=== PATIENT | female | born 1970 | race Caucasian/White ===

== ENCOUNTER 2022-12-27 20:28 | Outpatient (OUT) | payer OTHER, SELFPAY ==
[2023-01-01 10:07] LABS: Age Gdln ACOG Testing Note (.); HPV Aptima Negative (Negative); IGP, Aptima HPV, rfx 16/18,45 Note (.)
== END 2022-12-27 20:29 | disposition home or self-care (01) ==
PROVIDERS: Visit Provider Physician Assistant
DX: Z12.4 Encounter for screening for malignant neoplasm of cervix (principal)
CPT/HCPCS: 87624; G0145

== ENCOUNTER 2023-05-07 13:57 | Outpatient (OUT) | payer OTHER, SELFPAY ==
--- NOTE | 2023-05-07 14:00 | MM_ITS ---
Patient Name: SCOTT TOLBERT MR#: [id number] : 1970 Exam Date: 05/07/2023 Ordering Doctor: CHEKO Hood . RADIOLOGY REPORT PROCEDURE: MM TOMOSYNTHESIS SCREENING BI COMPARISON: MG MAMM SCREEN 3D MIL[place] CAD, 04/27/2022. MG MAMM SCREEN 3D [place] CAD, 03/24/2021. MG MAMM SCREEN MIL[place]RO W CAD, 02/17/2020. MG MAMM MILAGRO SCRN W CAD DIG, 11/04/2013. INDICATIONS: Screening Calculator Name NCI Breast Cancer Risk Assessment Tool 5 Year Breast Cancer Risk 1.30% Lifetime Breast Cancer Risk 9.30% Personal Breast Cancer No Personal Ovarian Cancer No Treatments None Family Cancers Mother with lung cancer at age 70; Father with esophagel cancer at age 70. LOCATION: The [facility] BREAST COMPOSITION: Extremely dense, which lowers the sensitivity of mammography. FINDINGS: DIAGNOSTIC CATEGORY 2--BENIGN FINDING: RIGHT BREAST: No significant suspicious finding. Scattered benign-appearing calcifications are present. No significant change has occurred. LEFT BREAST: No significant suspicious finding. No significant change has occurred. RECOMMENDATIONS: ROUTINE MAMMOGRAM AND CLINICAL EVALUATION IN 12 MONTHS. PLEASE NOTE: A NORMAL MAMMOGRAM DOES NOT EXCLUDE THE POSSIBILITY OF BREAST CANCER. A CLINICALLY SUSPICIOUS PALPABLE LUMP SHOULD BE BIOPSIED. Dictated by: Isaias Hein M.D. on 05/09/2023 at 12:01 Approved by: Isaias Hein M.D. on 05/09/2023 at 12:49
--- NOTE | 2023-05-07 14:04 | XR_ITS ---
The [address] [address] Patient Name: SCOTT TOLBERT MRN: [id number] date: 1970 Sex: F Assigned Patient Location: [facility] Current Patient Location: [facility] Accession/Order Number: [id number] Exam Date: 05/07/2023 14:22 Report Date: 05/07/2023 14:47 At the request of: BRITANY CHAVEZ Procedure: XR DEXA axial skeleton EXAMINATION: XR DEXA axial skeleton HISTORY: Post Menopause M61.0 COMPARISON: No relevant comparison available. TECHNIQUE: Dual-energy X-ray absorptiometry (DXA) was performed. FINDINGS: SPINE ANALYSIS: Average bone mineral density is 1.245 g/cm2. T-score (standard deviation relative to young adult mean): 0.4 . HIP ANALYSIS: Lowest bone mineral density is within the right femoral neck, 0.868 g/cm2. T-score (standard deviation relative to young adult mean): -1.2 . XR/XR DEXA axial skeleton IMPRESSION: World [employer] Classification: Osteopenia - Moderate Fracture Risk Electronically authenticated by: MAXINE FELIX Date: 05/07/2023 14:47
== END 2023-05-07 13:58 | disposition home or self-care (01) ==
LOC: MAMMO 13:57
PROVIDERS: Visit Provider Physician Assistant
DX: M81.0 Age-related osteoporosis without current pathological fracture (principal); Z12.31 Encounter for screening mammogram for malignant neoplasm of breast; Z80.1 Family history of malignant neoplasm of trachea, bronchus and lung; Z80.8 Family history of malignant neoplasm of other organs or systems; M85.80 Other specified disorders of bone density and structure, unspecified site
CPT/HCPCS: 77063; 77067; 77080

== ENCOUNTER 2023-12-03 08:30 | Outpatient (OUT) | payer OTHER, SELFPAY ==
--- NOTE | 2023-12-03 08:33 | US_ITS ---
The [address] [address] Patient Name: SCOTT TOLBERT MRN: [id number] date: 1970 Sex: F Assigned Patient Location: [facility] Current Patient Location: Accession/Order Number: [id number] Exam Date: 12/03/2023 08:35 Report Date: 12/04/2023 08:28 At the request of: MORTEZA DENTON Procedure: US pelvis w/ transvaginal EXAMINATION: US pelvis w/ transvaginal HISTORY: Postmenopausal bleeding N95.0 COMPARISON: No relevant comparison available. TECHNIQUE: Transabdominal and/or transvaginal sonographic examination was performed as indicated by examination type. FINDINGS: UTERUS: Normal size and appearance. Multiple nabothian cysts within zurita of cervix. Uterus size: 9.3 x 5.9 x 4.2 cm ENDOMETRIUM: Normal homogeneous appearance. Endometrial thickness: 5 mm RIGHT OVARY: Normal size and appearance. Duplex Doppler demonstrates normal waveform and flow; resistive index 0.6. Ovary size: 2.0 x 1.4 x 1.1 cm LEFT OVARY: Normal size and appearance. Duplex Doppler demonstrates normal waveform and flow; resistive index 0.7. Ovary size: 1.6 x 1.4 x 1.1 cm CUL-DE-SAC: Unremarkable. No significant free fluid. BLADDER: Unremarkable. OTHER: None. US/US pelvis w/ transvaginal IMPRESSION: 1. No suspicious findings to account for patient's symptoms. Electronically authenticated by: MAXINE FELIX Date: 12/04/2023 08:28
--- OUTSIDE RECORDS SUMMARY | 2023-12-03 08:43 | XMS_ITS | CCD ---
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 Role Phone DR MORTEZA DENTON Admitting Unavailable BERTIN, DR PRO Attending Unavailable REQUEST, NONE LISTED Primary Care Unavaila selene GRIMALDO, DR MARY ANN Hancock Consulting Unavailable BERTIN, DR PRO Consulting Unavailable Naty Sutherland Referring Unavailable Naty Sutherland Attending Unavailable Naty Sutherland Admitting Unavailable Allergies Allergy Classification Reported Allergen(s) Allergy Type Date of Onset Reaction(s) Facility (1 source) Morphine; Translations: [morphine] Drug Allergy [facility] Repository Problems Problem Classification Problem Date Documented Da te Episodic/Chronic Other screening for suspected conditions (not mental disorders or infectious disease) (4 sources) Encounter for screening mammogram for malignant neoplasm of breast; Translations: [ENC SCR MAMMO MALIG NEOPLASM BREAST] Onset: 04-27-2022 Episodic Residual codes; unclassified (1 source) Family history of malignant neoplasm of trachea, bronchus and lung; Translations: [FAM HX MALIG NEOPLSM TRACH BRON LNG] Onset: 05-04-2022 Episodic Residual codes; unclassified (1 source) Family history of malignant neoplasm of digestive organs; Translations: [FAM HX MALIG NEOPLASM DIGESTIV ORGN] Onset: 05-04-2022 Episodic Results Test Name Value Interpretation Reference Range Facil ity US Thyroidon 01-15-2023 US Thyroid Exam Date/Time: 01/12/2023 13:25 EDT Reason for Exam: E03.9 E04.1 Report IMPRESSION: Unchanged small left thyroid nodules. Right thyroidectomy. EXAMINATION: US Thyroid HISTORY: History of right thyroidectomy, yearly follow-up. TECHNIQUE: Sonography and Doppler imaging of the thyroid was performed. Images were obtained and stored in a permanent archive.\X09\ COMPARISON: 12/21/2021. RESULT: RIGHT LOBE: Surgically absent. Surgical bed unremarkable. LEFT LOBE: 2.9 cm x 1.3 cm x 1.9 cm with a volume of 3.6 cm3; homogeneous echogenicity, expected vascular flow ISTHMUS: 0.4 cm. Nodules: 0.5 x 0.4 x 0.6 cm TR 4 nodule in the left inferior thyroid and 0.4 x 0.4 x 0.4 cm TR4 nodule in the left mid thyroid, grossly unchanged. Lymph nodes: No enlarged cervical lymph nodes. Note, ACR TI-RADS is a reporting system for thyroid nodules on ultrasound proposed by the [employer] (ACR) Ordering Provider: Naty Sutherland FINAL REPORT Dictated: 01/15/2023 4:11 pm Juan R Oneil MD Signed (Electronic Signature): 01/15/2023 4:11 pm Signed by: Juan R Oneil MD Transcribed by: SILVINA Technologist: DENNY Normal [facility] Consent for Treatmenton 12-17 Consent for Treatment [id number]#1 .00CD:127 Normal [facility] Physician Orderon 01-12-2023 Physician Order [id number]# 1.00CD:127 Normal [facility] TSHon 01-12-2023 TSH Qn 0.99 m[IU]/L Normal 0.34-5.60 [facility] Comment on above: Performed By: #### 2 [id number] #### [facility] [address] [place] [address] Physician Orderon 01-10-2023 Physician Order [id number]#1 .00CD:127 Normal [facility] MG MAMM SCREEN 3D [place] CADon 04-27-2022 MG MAMM SCREEN 3D [place] CAD Patient: SCOTT TOLBERT Exam Date: 04/27/2022 : 1970 Gender:F Ordering : DR MORTEZA DENTON . Admission #: [id number] Family : Order #: [id number] CLICK HERE TO VIEW EXAM RADIOLOGY REPORT PROCEDURE: MAMMOGRAM SCREENING 3D BILATERAL CAD COMPARISON: MG MAMM SCREEN 3D [place] CAD, 03/24/2021. INDICATIONS: Screening mammography Calculator Name NCI Breast Cancer Risk Assessment Tool 5 Year Breast Cancer Risk 1.20% Lifetime Breast Cancer Risk 9.40% Personal Breast Cancer No Personal Ovarian Cancer No Treatments None Family Cancers Mother with lung cancer at age 70; Father with esophagel cancer at age 70. LOCATION: [facility] BREAST COMPOSITION: Extremely dense, which lowers the sensitivity of mammography. FINDINGS: DIAGNOSTIC CATEGORY 2--BENIGN FINDING. NO CHANGE FROM COMPARISON. Scattered benign-appearing calcifications are present. Scattered benign-appearing lymph nodes are present. RIGHT BREAST: No significant suspicious finding. LEFT BREAST: No significant suspicious finding. RECOMMENDATIONS: ROUTINE MAMMOGRAM AND CLINICAL EVALUATION IN 12 MONTHS. PLEASE NOTE: A NORMAL MAMMOGRAM DOES NOT EXCLUDE THE POSSIBILITY OF BREAST CANCER. A CLINICALLY SUSPICIOUS PALPABLE LUMP SHOULD BE BIOPSIED. Dictated by: Mary Ann Grimaldo MD on 04/28/2022 at 08:59 Approved by: Mary Ann Grimaldo MD on 04/28/2022 at 09:02 Normal [facility] Encounters Encounter Date Encounter Type Care Provider Facility Start: 01-12-2023 End: 01-13-2023 ambulatory Naty Cindy Koko Facility:[facility] Start: 04-27-2022 End: 04-28-[address] MORTEZA DENTON Facility: Payers Date Payer Category Payer Unknown [id number] 2.16.84 [id number] 1970 Unknown [id number] [id number] 1961 Unknown [id number] Summary Purpose Family History No Family History Records FoundNo Family History Records Found Advance Directives No Advanced Directives Records FoundNo Advanced Directives Records Found Additional Source Comments INFORMATION SOURCE (unrecogn ized section and content) DATE CREATED AUTHOR 05/05/2022 [facility] DATE CREATED AUTHOR AUTHOR'S ORGANIZ ATION 01/16/2023 [facility] FOR RECORDS PERTAINING TO PATIENTS WHO ARE OR HAVE BEEN ENROLLED IN A CHEMICAL DEPENDENCY/SUBSTANCEABUSE PROGRAM, SOME INFORMATION MAY BE OMITTED. This clinical summary was aggregated from multiple sources. Caution should be exercised in using it in the provision of clinical care. This summary normalizes information from multiple sources, and as a consequence, information in this document may materially change the coding, format and clinical context of patient data. In addition, data may be omitted in some cases. CLINICAL DECISIONS SHOULD BE BASED ON THE PRIMARY CLINICAL RECORDS. [facility] [employer] [facility]. provides no warranty or guarantee of the accuracy or completeness of information in this document.
== END 2023-12-03 08:31 | disposition home or self-care (01) ==
LOC: NOMS 08:30
PROVIDERS: Visit Provider Obstetrics & Gynecology
DX: N95.0 Postmenopausal bleeding (principal)
CPT/HCPCS: 76830; 76856; 81003

== ENCOUNTER 2023-12-03 09:10 | Outpatient (OUT) | payer OTHER, SELFPAY ==
[2023-12-03 10:08] LABS: Bilirubin Urine NEGATIVE (NEGATIVE); Blood Urine NEGATIVE (NEGATIVE); Clarity Urine CLEAR (CLEAR); Color Urine LT. YELLOW (YELLOW); Glucose Urine UA NEGATIVE (NEGATIVE); Ketones Urine NEGATIVE (NEGATIVE); Leukocyte Esterase Urine NEGATIVE (NEGATIVE); Nitrite Urine NEGATIVE (NEGATIVE); Protein Urine NEGATIVE (NEG/TRACE); Specific Gravity Urine <=1.005 (1.005-1.025); Urobilinogen Urine 0.2 EU/dL (0.2-1.0)
[2023-12-03 10:11] LABS: Urine Microscopic Indicated NO
== END 2023-12-03 09:11 | disposition home or self-care (01) ==
LOC: LAB 09:12
PROVIDERS: Visit Provider Obstetrics & Gynecology
DX: N95.0 Postmenopausal bleeding (principal)
CPT/HCPCS: 81003

== ENCOUNTER 2024-01-18 09:43 | Outpatient (OUT) | payer OTHER, SELFPAY ==
--- OUTSIDE RECORDS SUMMARY | 2024-01-18 09:46 | XMS_ITS | CCD ---
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 Role Phone DR MORTEZA DENTON Admitting Unavailable BERTIN, DR PRO Attending Unavailable REQUEST, DR GREY LISTED Primary Care Unavaila selene GRIMALDO, DR MARY ANN Hancock Consulting Unavailable BERTIN, DR PRO Consulting Unavailable Timmis Naty H Referring Unavailable TimmisNaty H Attending Unavailable TimmisNaty H Admitting Unavailable MORTEZA DENTON Attending Unavailable MORTEZA DENTON Attending Unavailable Allergies Allergy Classification Reported Allergen(s) Allergy Type Date of Onset Reaction(s) Facility (1 source) Morphine; Translations: [morphine] Drug Allergy [facility] Repository Problems Problem Classification Problem Date Documented [...] thyroid nodules on ultrasound proposed by the [employer] (ACR) Ordering Provider: Naty Sutherland FINAL REPORT Dictated: 01/15/2023 4:11 pm Juan R Oneil MD Signed (Electronic Signature): 01/15/2023 4:11 pm Signed by: Juan R Oneil MD Transcribed by: SILVINA Technologist: DENNY Munoz [facility] Consent for Treatmenton 12-17 Consent for Treatment [id number] .00CD:127 Normal [facility] Physician Orderon 01-12-2023 Physician Order [id number]# 1.00CD:127 Normal [facility] TSHon 01-12-2023 TSH Qn 0.99 m[IU]/L Normal 0.34-5.60 [facility] Comment on above: Performed By: #### 2 [id number] #### [facility] [address] [place] [address] Physician Orderon 01-10-2023 Physician Order [id number]#1 .00CD:127 Normal [facility] MG MAMM SCREEN 3D MIL[place]RO CADon 04-27-2022 MG MAMM SCREEN 3D [place] CAD Patient: SCOTT TOLBERT Exam Date: 04/27/2022 : 1970 Gender:F Ordering : DR MORTEZA DENTON . Admission #: [id number] Family : Order #: [id number] CLICK HERE TO VIEW EXAM RADIOLOGY REPORT [...] esophagel cancer at age 68. LOCATION: The [facility] BREAST COMPOSITION: Extremely dense, which lowers [...] Ann Grimaldo MD on 04/28/2022 at 09:02 [facility] Encounters Encounter Date Encounter Type Care Provider Facility Start: 01-03-2024 End: 01-03-2024 ambulatory MORTEZA DENTON Not Available Start: 11-26-2023 End: 11-26-2023 ambulatory MORTEZA DENTON Not Available Start: 01-12-2023 End: 01-13-2023 ambulatory Naty Sutherland Facility[facility] Start: 04-27-2022 End: 04-28-[address] MORTEZA DENTON Facility: Payers Date Payer Category Payer Unknown [id number] [id number] [id number] 1970 Unknown [id number] [id number] 1970 Unknown [id number] 2.16.84 [id number] 1970 Unknown [id number] 2.16.84 [id number] 1959 Unknown [id number] Summary Purpose Family History No Family History Records FoundNo Family History Records FoundNo Family History Records Found Advance Directives No Advanced Directives Records FoundNo Advanced Directives Records FoundNo Advanced Directives Records Found Additional Source Comments INFORMATION SOURCE (unrecogn ized section and content) DATE CREATED AUTHOR 05/05/2022 [facility] DATE CREATED AUTHOR AUTHOR'S ORGANIZ ATION 01/16/2023 [facility] DATE CREATED AUTHOR AUTHOR'S ORGANIZ ATION 01/06/[address] [facility] [employer] EP[employer] FOR RECORDS PERTAINING TO PATIENTS WHO ARE [...] BE BASED ON THE PRIMARY CLINICAL RECORDS. [facility] [employer] provides no warranty or guarantee of the accuracy or completeness of information in this document.
--- NOTE | 2024-01-18 09:49 | ECG_ITS ---
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
== END 2024-01-18 09:44 | disposition home or self-care (01) ==
LOC: PST 09:43
PROVIDERS: Visit Provider Obstetrics & Gynecology
DX: Z01.810 Encounter for preprocedural cardiovascular examination (principal); N95.0 Postmenopausal bleeding
CPT/HCPCS: 93005

== ENCOUNTER 2024-02-01 06:45 | Day surgery (SDC) | payer OTHER, SELFPAY ==
[2024-01-18 10:18] VITALS: BP 125/74; PULSE 58; TEMP 36.4; O2SAT 100; BMI 26.1
--- OUTSIDE RECORDS SUMMARY | 2024-02-01 06:47 | XMS_ITS | CCD ---
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 .00CD:127 Normal [facility] Physician Orderon 01-12-2023 Physician Order [id number]# 1.00CD:127 Normal [facility] TSHon 01-12-2023 TSH Qn 0.99 m[IU]/L Normal 0.34-5.60 [facility] Comment on above: Performed By: #### 2 [id number] #### [facility] [address] [place] [address] Physician Orderon 01-10-2023 Physician Order [id number] .00CD:127 Normal [facility] MG MAMM SCREEN 3D MIL[place]RO CADon 04-27-2022 MG MAMM SCREEN 3D [place] CAD Patient: SCOTT TOLBERT Exam Date: 04/27/2022 : 1970 Gender:F Ordering : DR MORTEZA DENTON . Admission #: [id number] Family : Order #: [id number] CLICK HERE TO VIEW EXAM RADIOLOGY REPORT [...] esophagel cancer at age 68. LOCATION: The [facility] BREAST COMPOSITION: Extremely dense, which lowers [...] Ann Grimaldo MD on 04/28/2022 at 09:02 [facility] Encounters Encounter Date Encounter Type Care Provider Facility Start: 01-03-2024 End: 01-03-2024 ambulatory MORTEZA DENTON Not Available Start: 11-26-2023 End: 11-26-2023 ambulatory MORTEZA DENTON Not Available Start: 01-12-2023 End: 01-13-2023 ambulatory Naty Sutherland Facility:[facility] Start: 04-27-2022 End: 04-28-[address] MORTEZA DENTON Facility: Payers Date Payer Category Payer Unknown [id number] 2.16.84 [id number] 1970 Unknown [id number] 2.16.8 [id number] 1970 Unknown [id number] 2.16.84 [id number] 1970 Unknown [id number] 2.16.84 [id number] 1961 Unknown [id number] Summary Purpose Family History No Family History Records FoundNo Family History Records FoundNo Family History Records Found Advance Directives No Advanced Directives Records FoundNo Advanced Directives Records FoundNo Advanced Directives Records Found Additional Source Comments INFORMATION SOURCE (unrecogn ized section and content) DATE CREATED AUTHOR 05/05/2022 [facility] DATE CREATED AUTHOR AUTHOR'S ORGANIZ ATION 01/16/2023 [facility] DATE CREATED AUTHOR AUTHOR'S ORGANIZ ATION 01/06/2024 [facility] [employer] EPIC FOR RECORDS PERTAINING TO PATIENTS [...] BE BASED ON THE PRIMARY CLINICAL RECORDS. [facility] [employer] provides no warranty or guarantee of the accuracy or completeness of information in this document.
[2024-02-01 07:00] VITALS: BP 150/87; PULSE 74; TEMP 36.3; O2SAT 100; BMI 26.0
[2024-02-01 07:06] LABS: Basophils Percent Auto 0.6 % (0.2-2.0); Eosinophils Absolute Auto 0.1 10^3/uL (0.0-0.7); Eosinophils Percent Auto 1.3 % (0.9-7.0); Hematocrit 42.3 % (36.0-48.0); Hemoglobin 13.9 g/dL (12.0-16.0); Immature Granulocytes Abs Auto 0.01 10^3/uL (0.00-0.03); Immature Granulocytes Pct Auto 0.2 % (0.0-0.5); Lymphocytes Absolute Auto 2.2 10^3/uL (1.2-3.8); Lymphocytes Percent Auto 41.7 % (20.5-60.0); Mean Corpuscular HGB Conc 32.9 g/dL (29.9-35.2); Mean Corpuscular Hemoglobin 30.4 pg (26.7-34.0); Mean Corpuscular Volume 92.6 fL (81.0-99.0); Monocytes Absolute Auto 0.5 10^3/uL (0.3-0.8); Monocytes Percent Auto 10.2 % (1.7-12.0); Neutrophils Absolute Auto 2.4 10^3/uL (1.4-6.5); Platelet Count 252 10^3/uL (150-450); Red Blood Count 4.57 10^6/uL (4.20-5.40); Red Cell Distribution Width 12.3 % (11.0-15.0); White Blood Count 5.3 10^3/uL (4.0-11.0)
[2024-02-01 07:27] LABS: Glucometer 93 mg/dL (74-106)
[2024-02-01] MEDS: LACTATED RINGER'S SOLUTION 1,000 ML 50 ML IV (07:29)
[2024-02-01 10:44] VITALS: BP 115/83; PULSE 70; O2SAT 96
--- NOTE | 2024-02-01 10:44 | PM.ONB ---
Brief Operative Note Date of procedure: 02/01/24 Pre-op diagnosis general: pmb, thickend endometrium Post-op diagnosis: same as pre-op Procedure: NAME OF PROCEDURE: [ D&c hysteroscopy with myosure] PROCEDURE: The patient was taken back to the Operating Room where she was prepped and draped in normal sterile fashion after being placed under general anesthesia without difficulty. She was also placed in the dorsal lithotomy position. A weighted speculum was placed in the patient?s vagina. The anterior lip of the cervix was identified and grasped with a single tooth tenaculum. The patient?s uterus was then sounded roughly to [? 8] cm. The patient was then gently dilated using Hegar dilators. The hysteroscope was passed through the patient?s cervix into the uterus. Both ostia were identified. fluffy appearing endometrium. No gross evidence of malignancy, no gross evidence of polyps or fibroids. The myosure apparatus was placed through the scope, The myosure was engaged and endometrial curretting were removed along with endometrial polyp, The hysteroscope was then removed from the uterus. The endometrial curettings were sent out to pathology. The single tooth tenaculum was then removed from the patient's anterior lip of the cervix where excellent hemostasis was noted. All instruments were removed from the patient?s vagina. The patient tolerated the procedure well. Sponge, lap and needle counts were correct times two. The patient was taken to the Recovery Room in stable condition.Room in stable condition. Anesthesia: GETA and MAC Surgeon: Alton Huffman Estimated blood loss (mL): 5 Pathology: other (endometrial currettings) Condition: stable Disposition: PACU Urinary Catheter Management Urinary Catheter Management Urethral: Cath placed during this visit: no
[2024-02-01 11:00] VITALS: BP 116/74; PULSE 62; O2SAT 98
--- NOTE | 2024-02-01 11:07 | PC.NURSE ---
Peripad dry; denies urge to void
[2024-02-01 11:30] VITALS: BP 134/79; PULSE 50; O2SAT 100
--- NOTE | 2024-02-01 12:01 | PC.NURSE ---
Peripad has small amount bloody drainage without clots
--- NOTE | 2024-02-01 12:03 | PC.NURSE ---
Up to bathroom and voids without difficulty with small amount of blood noted in toliet.
== END 2024-02-01 11:55 | disposition home or self-care (01) ==
PROVIDERS: Visit Provider Obstetrics & Gynecology
PROC: (CPT 952; principal; 2024-02-01 08:05)
DX: N95.0 Postmenopausal bleeding (principal); R93.89 Abnormal findings on diagnostic imaging of other specified body structures; K21.9 Gastro-esophageal reflux disease without esophagitis; E03.9 Hypothyroidism, unspecified
CPT/HCPCS: 58558; 36415; 82948; 85025; 88305; J1100; J1885; J2250; J2405; J2704; J3010

== ENCOUNTER 2024-05-08 13:48 | Outpatient (OUT) | payer OTHER, SELFPAY ==
--- NOTE | 2024-05-08 13:50 | MM_ITS ---
Patient Name: SCOTT TOLBERT MR#: [id number] : 1970 Exam Date: 05/08/2024 Ordering Doctor: DR Alton Huffman . RADIOLOGY REPORT PROCEDURE: MM TOMOSYNTHESIS SCREENING BI COMPARISON: MM TOMOSYNTHESIS SCREENING BI, 05/07/2023. MG MAMM SCREEN 3D MILAGRO CAD, 04/27/2022. MG MAMM SCREEN 3D [place] CAD, 03/24/2021. MG MAMM [place]RO SCRN W CAD DIG, 11/04/2013. INDICATIONS: Screening Calculator Name NCI Breast Cancer Risk Assessment Tool 5 Year Breast Cancer Risk 1.30% Lifetime Breast Cancer Risk 9.10% Personal Breast Cancer No Personal Ovarian Cancer No Treatments None Family Cancers Mother with lung cancer at age 70; Father with esophagel cancer at age 70. LOCATION: [facility] BREAST COMPOSITION: The breasts are extremely dense, which lowers the sensitivity of mammography. FINDINGS: DIAGNOSTIC CATEGORY 2--BENIGN FINDING: RIGHT BREAST: No significant suspicious finding. Scattered benign-appearing calcifications are present. No significant change has occurred. LEFT BREAST: No significant suspicious finding. Stable asymmetric fibroglandular tissue within lower-outer quadrant. No significant change has occurred. RECOMMENDATIONS: ROUTINE MAMMOGRAM AND CLINICAL EVALUATION IN 12 MONTHS. PLEASE NOTE: A NORMAL MAMMOGRAM DOES NOT EXCLUDE THE POSSIBILITY OF BREAST CANCER. A CLINICALLY SUSPICIOUS PALPABLE LUMP SHOULD BE BIOPSIED. Dictated by: Isaias Hein M.D. on 05/08/2024 at 15:53 Approved by: Isaias Hein M.D. on 05/08/2024 at 15:57
== END 2024-05-08 13:49 | disposition home or self-care (01) ==
LOC: MAMMO 13:48
PROVIDERS: Visit Provider Obstetrics & Gynecology
DX: Z12.31 Encounter for screening mammogram for malignant neoplasm of breast (principal); Z80.1 Family history of malignant neoplasm of trachea, bronchus and lung
CPT/HCPCS: 77063; 77067

== ENCOUNTER 2024-06-05 18:59 | Outpatient (REF) | payer OTHER, SELFPAY ==
--- OUTSIDE RECORDS SUMMARY | 2024-06-05 19:02 | XMS_ITS | CCD ---
Author Organization [facility] Informat ion Partnership [facility] Care Team Providers Care Wood Sash [employer] Frame Carpenter Name Role Phone DR MORTEZA HUFFMAN Admitting Unavailable NATHANAEL, DR PRO Attending Unavailable REQUEST, NONE LISTED Primary Care Unavaila selene GRIMALDO, DR MARY ANN Hancock Consulting Unavailable NATHANAEL, DR PRO Consulting Unavailable Nathanael, DO Pro Attending Provider Radha Huffmany Attending Unavailable Nathanael, Morteza Admitting Unavailable Timmis, Naty H Admitting Unavailable Timmis, Naty H Attending Unavailable Timmis, Naty H Referring Unavailable Timmis, Naty H Admitting Unavailable Timmis, Naty H Attending Unavailable Timmis, Naty H Referring Unavailable NATHANAEL, MORTEZA Attending Unavailable NATHANAEL, MORTEZA Attending Unavailable SCOTT, BRITANY Attending Unavailable TIMMIS, NATY H Attending Unavailable Allergies Allergy Classification Reported Allergen(s) Allergy Type Date of Onset Reaction(s) Facility (1 source) Morphine; Translations: [morphine] Drug Allergy [facility] Repository Problems Problem Classification Problem Date Documented [...] Interpretation Reference Range Facil ity US Thyroidon 02-16-2024 US Thyroid Exam Date/Time: 02/12/2024 16:20 EDT Reason for Exam: C73 Report IMPRESSION: Unchanged small subcentimeter nodule or nodules left lobe. Right thyroidectomy. EXAMINATION: US Thyroid HISTORY: Yearly follow-up. History of right thyroidectomy. TECHNIQUE: Sonography and Doppler imaging of the thyroid was performed. Images were obtained and stored in a permanent archive.\X09\ COMPARISON: 01/12/2023. RESULT: RIGHT LOBE: Surgically absent. Surgical bed unremarkable. LEFT LOBE: 3.3 cm x 1.2 cm x 1.7 cm with a volume of 3.6 cm3; homogeneous echogenicity, expected vascular flow ISTHMUS: 0.3 cm. Left-sided nodules: 0.4 cm TR 4 nodule, unchanged. Possible 0.6 cm TR 4 nodule versus heterogeneous parenchyma, grossly unchanged from prior. Lymph nodes: No enlarged cervical lymph nodes. Note, ACR TI-RADS is a reporting system for thyroid nodules on ultrasound proposed by the [employer] (ACR) Ordering Provider: Naty Sutherland FINAL REPORT Dictated: 02/16/2024 12:19 pm Juan R Oneil MD Signed (Electronic Signature): 02/16/2024 12:19 pm Signed by: Juan R Oneil MD Transcribed by: SILVINA Technologist: GOGO Munoz [facility] TSHon 02-12-2024 TSH Qn 1.65 m[IU]/L Normal 0.34-5.60 [facility] Comment on above: Performed By: #### 2 [id number] #### [facility] [address] [place] [address] Pathology Request for Lab Co rpon 02-01-2024 Pathology Request for Lab Harjit Normal [facility] Comment on above: Order Comment: PATHO LOGY EMB SPECIMEN Result Comment: See report. Scanned copy available in EMR. PERFORMED BY: [place] [address] PATHOLOGIST BUILDING SERVICE WORKER MINNIE JHA M.D. Performed By: #### P ATH TO [facility] #### [address] MG MAMM SCREEN 3D [place] CADon 1110-2022 MG MAMM SCREEN 3D [place] CAD Patient: SCOTT TOLBERT Exam Date: 04/27/2022 : 1970 Gender:F Ordering : DR MORTEZA HUFFMAN . Admission #: [id number] Family : Order #: [id number] CLICK HERE TO VIEW EXAM RADIOLOGY REPORT [...] esophagel cancer at age 68. LOCATION: [facility] BREAST COMPOSITION: Extremely dense, which lowers the [...] Grimaldo MD on 04/28/2022 at 09:02 [facility] Encounters Encounter Date Encounter Type Care Provider Facility Start: 03-17-2024 End: 03-17-2024 ambulatory NATY H ARACELISMIS Not Available Start: 02-13-2024 End: 02-13-2024 ambulatory BRITANY CHAVEZ Not Available Start: 02-12-2024 End: 02-12-2024 ambulatory Naty H Timmis [place] [place]: 02-01-2024 End: 02-01-2024 ambulatory Morteza Huffman [facility] Work Phone: Start: 02-01-2024 End: 02-01-2024 Departed Referred DO Morteza Huffman Work Phone: [facility] Start: 01-03-2024 End: 01-03-2024 ambulatory MORTEZA HUFFMAN Not Available Start: 11-26-2023 End: 11-26-2023 ambulatory MORTEZA HUFFMAN Not Available Start: 04-27-2022 End: 04-28-[address] MORTEZA HUFFMAN Facility: Plan of Treatment Date Care Activity Detail Author Start: 02-01-2024 [facility] Payers Date Payer Category Payer Self-pay 1970 Unknown [id number] [id number] 1970 Unknown [id number] [id number] [id number] 1970 Unknown [id number] 2.16.84 [id number] 1970 Unknown [id number] 2.16.84 [id number] 1970 Unknown [id number] 2.16.84 [id number] 1970 Unknown [id number] 2.16.84 [id number] 1961 Unknown [id number] Unknown [id number] 2.16.8 [id number] Social History Date Type Detail Facility Tobacco smoking stat [facility] Unknown if ever smoked [facility] Work Phone: Start: 1970 Sex Assigned At Female F [facility] Evaluation note Note Date & Type Note Facility Evaluation note No assessment information availa ble [facility] Work Phone: Summary Purpose Family History No Family History Records FoundNo Family History Records FoundNo Family History Records FoundNo Family History Records FoundNo Family History Records Found Advance Directives No Advanced Directives Records Found Advance Directive Response Recorded Date/ Time Advance Directives No February 01, 2024 12:04pm Additional Source Comments INFORMATION SOURCE (unrecogn ized section and content) DATE CREATED AUTHOR 05/05/2022 [facility] DATE CREATED AUTHOR AUTHOR'S ORGANIZ ATION 02/07/2024 [facility] DATE CREATED AUTHOR AUTHOR'S ORGANIZ ATION 02/14/2024 Wharton Treasure [facility] DATE CREATED AUTHOR AUTHOR'S ORGANIZ ATION 02/20/2024 Dio Juvencio [facility] DATE CREATED AUTHOR AUTHOR'S ORGANIZ ATION 03/18/2024 [facility] [employer] Care Teams (unrecognized sec tion and content) Team Status: Inactive Member Role Status Dates Morteza Huffman DO Attending Provider Active Start : February 01, 2024 End: February 01, 2024 Goals (unrecognized section and content) Goals may be documented in a n alternate section FOR RECORDS PERTAINING TO PATIENTS WHO ARE [...] BE BASED ON THE PRIMARY CLINICAL RECORDS. [facility]. provides no warranty or guarantee of the accuracy or completeness of information in this document.
[2024-06-13 16:08] LABS: Age Gdln ACOG Testing Note (.); HPV Aptima Negative (Negative); IGP, Aptima HPV, rfx 16/18,45 Note (.)
== END 2024-06-05 19:00 | disposition home or self-care (01) ==
LOC: LAB 18:59
PROVIDERS: Visit Provider Physician Assistant
DX: Z01.419 Encounter for gynecological examination (general) (routine) without abnormal findings (principal)
CPT/HCPCS: 87624; 88175

== ENCOUNTER 2025-05-21 14:11 | Outpatient (OUT) | payer OTHER, SELFPAY ==
--- NOTE | 2025-05-21 14:13 | MM_ITS ---
Patient Name: SCOTT TOLBERT MR#: [id number] : 1970 Exam Date: 05/21/2025 Ordering Doctor: DR MORTEZA DENTON . RADIOLOGY REPORT PROCEDURE: MM TOMOSYNTHESIS SCREENING BI COMPARISON: MM TOMOSYNTHESIS SCREENING BI, 05/08/2024. MM TOMOSYNTHESIS SCREENING BI, 05/07/2023. MG MAMM SCREEN 3D [place] CAD, 04/27/2022. MG MAMM [place] SCRN W CAD DIG, 11/04/2013. INDICATIONS: Screening Calculator Name NCI Breast Cancer Risk Assessment Tool 5 Year Breast Cancer Risk 1.40% Lifetime Breast Cancer Risk 8.90% Personal Breast Cancer No Personal Ovarian Cancer No Treatments None Family Cancers Mother with lung cancer at age 70; Father with esophagel cancer at age 70. LOCATION: [facility] BREAST COMPOSITION: The breasts are extremely dense, which lowers the sensitivity of mammography. FINDINGS: DIAGNOSTIC CATEGORY 1--NEGATIVE. RIGHT BREAST: No significant suspicious finding. LEFT BREAST: No significant suspicious finding. RECOMMENDATIONS: ROUTINE MAMMOGRAM AND CLINICAL EVALUATION IN 12 MONTHS. Dictated by: Derek Castellanos DO on 05/21/2025 at 15:18 Approved by: Derek Castellanos DO on 05/21/2025 at 15:21
== END 2025-05-21 14:12 | disposition home or self-care (01) ==
LOC: MAMMO 14:11
PROVIDERS: Visit Provider Obstetrics & Gynecology
DX: Z12.31 Encounter for screening mammogram for malignant neoplasm of breast (principal); Z80.1 Family history of malignant neoplasm of trachea, bronchus and lung; Z80.8 Family history of malignant neoplasm of other organs or systems
CPT/HCPCS: 77063; 77067